=== PATIENT | female | born 1960 | race Caucasian/White ===

== ENCOUNTER 2021-03-19 08:18 | Outpatient (CLI) | payer BC, SELFPAY ==
--- NOTE | ~2021-03-19 | MM_ITS ---
EXAMINATION: MM screening swapnil BI w willian HISTORY: Screening mammogram TECHNIQUE: Craniocaudal and mediolateral oblique 3-D tomosynthesis images were obtained and synthetic 2-D images were generated. CAD analysis was submitted and interpreted. COMPARISON: No prior mammogram is available for comparison at this institution. BREAST PARENCHYMAL COMPOSITION: The breasts are heterogeneously dense, which may obscure small masses . FINDINGS: RIGHT BREAST: There are indeterminate grouped calcifications in the middle third of the upper breast. LEFT BREAST: An asymmetry is present in the anterior third of the slightly outer breast on the cranio caudal view. IMPRESSION: 1. Bilateral breast findings as described above which may represent the patient's baseline however no comparison is currently available. 2. Comparison with prior mammograms is necessary. BI-RADS Category 0: Incomplete: Needs comparison with prior mammograms. Reviewed, dictated and finalized at location A. BLASTING SUPERVISOR IMPRESSION: 1. Bilateral breast findings as described above which may represent the patient 's baseline however no comparison is currently available. 2. Comparison with prior mammograms is necessary. BI-RADS Category 0: Incomplete: Needs comparison with prior mammograms.
--- NOTE | ~2021-03-19 | DEXA_ITS ---
Bone Density Report Name: GISELL TABOR Age: 60 Sex: Female Ethnicity: White Date of : 1960 Indication: postmenopausal; Referring Provider: UNKNOWN, UNKNOWN Study: Bone densitometry was performed. Exam Date: March 19, 2021 Accession number: [id number] Bone Density: Region BMD T-score Z-score Classification AP Spine (L1-L4) 0.934 -1.0 0.4 Normal Femoral Neck (Left) 0.676 -1.6 -0.3 Osteopenia Total Hip (Left) 0.832 -0.9 0.1 Normal Total Hip Bilateral Avg 0.830 -0.9 0.1 Normal Femoral Neck (Right) 0.652 -1.8 -0.5 Osteopenia Total Hip (Right) 0.827 -0.9 0.0 Normal World Health Organization criteria for BMD impression classify patients as: Normal (T-score at or above -1.0), Osteopenia (T-score between -1.0 and -2.5), or Osteoporosis (T-score at or below -2.5). 10-year Fracture Risk(1): Major Osteoporotic Fracture 8.5% Hip Fracture 0.8% Reported Risk Factors: [place] (), Neck BMD=0.652, BMI=29.7 (1) FRAX(R) Version 3.08. Fracture probability calculated for an untreated patient. Fracture probability may be lower if the patient has received treatment. Clinical Information Provided by Patient: Has used the following medications: Vitamin D, Calcium Patient maximum height was 64 Menopause Age: 49 Drinks caffeinated beverages Onset of menses at age 10 Number of children 0 Impression: The patient has low bone mass, based on the Right Femoral Neck T-score. The patient has an estimated ten-year risk of hip fracture of 0.8% and an estimated ten-year risk of major fracture of 8.5%, based on the WHO FRAX algorithm. Discussion: BONE DENSITY IS LOW AT ONE OR MORE SKELETAL SITES. This patient's lowest T-score is low at one or more skeletal sites. It meets the World Health Organization's (WHO) criteria for ?low bone mass? (T-score between -1.0 and -2.5). The patient's 10-year risk of fracture as calculated by FRAX is less than the threshold where pharmacological therapy is recommended by the National Osteoporosis Foundation (NOF). However, all treatment decisions require clinical judgment and consideration of individual patient factors, including patient preferences, comorbidities, previous drug use, risk factors not captured in the FRAX model (e.g., frailty, falls, vitamin D deficiency, increased bone turnover, interval significant decline in bone density) and possible under or overestimation of fracture risk by FRAX. The patient should follow a healthful lifestyle (good nutrition with adequate calcium and vitamin D, and appropriate weight-bearing exercise). Follow-Up: Consider repeating this study in 2 to 3 years to reassess this patient's status, or sooner if there is some new clinical indication. Reported by: [facility] on 03/19/2021 8:46:00 AM. Revi
== END 2021-03-19 08:19 | disposition home or self-care (01) ==
LOC: ANHIMG 08:24
DX: Z12.31 Encounter for screening mammogram for malignant neoplasm of breast (principal); R92.0 Mammographic microcalcification found on diagnostic imaging of breast; Z78.0 Asymptomatic menopausal state; M85.852 Other specified disorders of bone density and structure, left thigh; M85.851 Other specified disorders of bone density and structure, right thigh
CPT/HCPCS: 77063; 77067; 77080

== ENCOUNTER 2022-10-04 00:23 | Day surgery (SDC) | payer BC, SELFPAY ==
[2022-09-22 13:27] VITALS: BMI 29.2
[2022-10-04 07:05] VITALS: BP 137/69; PULSE 83; RESP 18; TEMP 36.4; O2SAT 100; BMI 29.5
[2022-10-04] MEDS: LACTATED RINGERS 1,000 ML 150 ML IV CONT (07:26)
--- NOTE | 2022-10-04 07:51 | P.HP_ITS ---
History of Present Illness History of Present Illness Consent: Risks, benefits, and alternatives have been discussed and questions answered. Patient agrees to proceed with procedure. Chief complaint: neoplasm screening Narrative: Ann Alcantara is a 61 year old female Presents for screening colonoscopy. Patient's current weight appetite and bowel movements are normal. Patient denies abdominal pain. She has had no bleeding. Patient reports 10 years ago she had a colonoscopy that was unremarkable. She does report that her grandparents may have had colon cancer. There is no report of first-degree relatives that have had polyps nor cancer. Review of Systems Review of Systems: Review of systems noncontributory. [facility] Social History Social History Smoking status: Never smoker Substance use type: does not use Living arrangements: with family Spiritual care concerns: No Meds Home Medications and Allergies Home Medications Medication Instructions Recorded Confirmed Type calcium 600 mg capsule 600 mg PO BID 09/22/22 10/04/22 History multivitamin with minerals-folic 1 tablet PO DAILY 09/22/22 10/04/22 History acid 0.4 mg tablet venlafaxine 75 mg capsule,extended 75 mg PO DAILY 09/22/22 10/04/22 History release 24 hr Allergies Allergy/AdvReac Type Severity Reaction Status Date / Time azithromycin Allergy Diarrhea Verified 10/04/22 07:11 Penicillins Allergy Rash Verified 10/04/22 07:11 Vital Signs Vital Signs - 24 hr 10/04/22 07:05 Temperature 97.6 F Pulse Rate 83 Respiratory Rate 18 Blood Pressure 137/69 Pulse Oximetry 100 Oxygen Delivery Room Air Exam Narrative: Physical exam reveals patient to be alert. Vital signs stable. HEENT exam is unremarkable. Patient is anicteric. Lungs are clear to auscultation and percussion. Heart is without murmur or extra sounds. Abdomen bowel sounds are present soft nontender with no organomegaly. Digital external rectal exam is normal. Assessment and Plan Assessment and plan (1) Encounter for screening colonoscopy: Code(s): Z12.11 - Encounter for screening for malignant neoplasm of colon Status: Acute Assessment and Plan: Patient presents today for screening colonoscopy. Further recommendations may be given after endoscopy.
--- NOTE | 2022-10-04 08:10 | P.PNAN_ITS ---
Anes - Initial Pre Proc Eval Procedure: Operation Date: 10/04/22 08:30 Proposed Procedures p Screening Colonoscopy - Dandre Landaverde MD Date/Time: 10/04/22 08:10 Surgeon: Dandre Landaverde MD Pre Op Diagnosis: neoplasm screening Patient Data Age: 61 Gender: F Height: 1.63 m Weight: 78.1 kg Last Vital Signs Temp 97.6 F 10/04/22 07:05 Pulse 83 10/04/22 07:05 Resp 18 10/04/22 07:05 BP 137/69 10/04/22 07:05 Pulse Ox 100 10/04/22 07:05 O2 Del Method Room Air 10/04/22 07:05 Allergies Allergy/AdvReac Type Severity Reaction Status Date / Time azithromycin Allergy Diarrhea Verified 10/04/22 07:11 Penicillins Allergy Rash Verified 10/04/22 07:11 Home Medications Medication Instructions Recorded Confirmed Type calcium 600 mg capsule 600 mg PO BID 09/22/22 10/04/22 History multivitamin with minerals-folic 1 tablet PO DAILY 09/22/22 10/04/22 History acid 0.4 mg tablet venlafaxine 75 mg capsule,extended 75 mg PO DAILY 09/22/22 10/04/22 History release 24 hr Patient hx anesthesia problems: none Family hx anesthesia problems: none Results Review: All pre-operative results and documents have been reviewed as part of the pre- operative evaluation. PMF Social History Social History Smoking status: Never smoker Substance use type: does not use Living arrangements: with family Spiritual care concerns: No Anes - Eval Final PreProcedure Day of Procedure 10/04/22 08:10 Patient weight: normal Heart: regular rate and rhythm Lungs: clear to auscultation Airway: Mallampati scale class II Neurological: alert and oriented Last oral intake: >/= 8 hours ASA classification: II Emergent: no Anesthetic plan: proceed Anesthesia type and monitoring: general GIVS and standard monitoring Results Review: All pre-operative results and documents have been reviewed as part of the pre- operative evaluation. Informed Consent: The patient's anesthetic plan and its attendant risks and benefits were discussed with the patient/family/POA. Questions were solicited and answers provided to the satisfaction of the patient/family/POA.
[2022-10-04 08:58] VITALS: BP 91/47; PULSE 71; RESP 17; O2SAT 100
[2022-10-04 09:08] VITALS: BP 104/64; PULSE 73; RESP 19; O2SAT 100
[2022-10-04 09:18] VITALS: BP 115/66; PULSE 75; RESP 21; O2SAT 100
== END 2022-10-04 09:28 | disposition home or self-care (01) ==
PROVIDERS: PCP Registered Nurse; Visit Provider Internal Medicine Gastroenterology
PROC: 0DJD8ZZ Inspection of Lower Intestinal Tract, Via Natural or Artificial Opening Endoscopic (ICD-10-PCS; CPT 45378; principal; 2022-10-04 08:30)
DX: Z12.11 Encounter for screening for malignant neoplasm of colon (principal); K64.8 Other hemorrhoids
CPT/HCPCS: 45378; J2001; J2704; J7120

== ENCOUNTER 2023-04-12 14:24 | Outpatient (CLI) | payer BC, SELFPAY ==
--- NOTE | ~2023-04-12 | MM_ITS ---
EXAMINATION: MM screening swapnil BI w willian HISTORY: Screening TECHNIQUE: Craniocaudal and mediolateral oblique 3-D tomosynthesis images were obtained and synthetic 2-D images were generated. CAD analysis was submitted and interpreted. COMPARISON: Comparison to multiple prior studies sequentially, with oldest reviewed study dated 01/11. BREAST PARENCHYMAL COMPOSITION: The breasts are heterogeneously dense, which may obscure small masses . FINDINGS: There is no evidence of suspicious mass, calcification, or architectural distortion to sugg est malignancy in either breast. There has been no suspicious interval change. IMPRESSION: 1. No mammographic evidence of malignancy. 2. Recommend routine screening mammography in one year. BI-RADS Category 1: Negative Reviewed, dictated and finalized at location A. UTER FORENSIC EXAMINER
== END 2023-04-12 14:25 | disposition home or self-care (01) ==
LOC: ANHIMG 14:28
PROVIDERS: PCP Registered Nurse; Visit Provider Registered Nurse
DX: Z12.31 Encounter for screening mammogram for malignant neoplasm of breast (principal)
CPT/HCPCS: 77063; 77067

== ENCOUNTER 2024-05-23 14:48 | Outpatient (CLI) | payer OTHER, SELFPAY ==
--- NOTE | ~2024-05-23 | MM_ITS ---
EXAMINATION: MM screening [facility] BI w willian HISTORY: Screening mammogram TECHNIQUE: Craniocaudal and mediolateral oblique 3-D tomosynthesis images were obtained and synthetic 2-D images were generated. CAD analysis was submitted and interpreted. COMPARISON: 04/12/2023, 03/19/2021, 02/19/2020 BREAST PARENCHYMAL COMPOSITION:Not Dense. There are scattered areas of fibroglandular density. FINDINGS: No suspicious mass, calcification, or architectural distortion are identified in either lili ast to suggest malignancy. There has been no suspicious interval change. IMPRESSION: No mammographic evidence of malignancy. Recommend routine screening mammography in one year. BI-RADS Category 1: Negative Reviewed, dictated and finalized at location .
--- OUTSIDE RECORDS SUMMARY | 2024-05-23 16:38 | XMS_ITS | Clinical Summary ---
Author Organization [facility] Address [address] [place] [address] Care Team Providers Care Urologist Md Name Role Phone Jaden Nguyen Kal INFANTE Primary Care Provider + Allergies Active Allergy Reactions Criticality Noted Date Comments Penicillins Rash Low 07/01/2019 Azithromycin Diarrhea Low 07/01/2019 Medications Calcium Carbonate-Vit D-Min (CALTRATE 600+D PLUS MINERALS) 600-800 MG-UNIT Chew Tab Chew 2 tablets by mouth 2 (two) times a day. 2 Active ketoconazole (NIZORAL) 2 % creamIndication s:Tinea cruris Apply topically daily. 60 g 3 Active omeprazole EC (PRILOSEC OTC) 20 MG tablet Take 1 tablet (20 mg total) by mouth daily. Active albuterol sulfate HFA 108 (90 Base) MCG/ACT inhaler INHALE 2 PUFFS BY MOUTH 4 TIMES DAILY NEEDED FOR WHEEZING FOR SHORTNESS OF BREATH Active venlafaxine XR (EFFEXOR XR) 37.5 MG 24 hr capsuleIndicati ons:Vasomotor symptoms due to menopause Take 1 capsule daily for one month, then take 1 capsule every other day for one month, then stop 30 capsule 1 5 Active venlafaxine XR (EFFEXOR-XR) 75 MG 24 hr capsuleIndicati ons:Vasomotor symptoms due to menopause TAKE 1 CAPSULE BY MOUTH ONCE DAILY ALONG WITH ONE 37.5MG CAPSULE. 90 capsule 2 4 05/23/19 25 Discontinu ed(Dose adjustment ) Active Problems Problem Noted Date Diagnosed Date Vasomotor symptoms due to menopause 05/22/2024 Osteopenia of other site 04/05/2021 Resolved Problems Problem Noted Date Diagnosed Date Resolved Date Superficial basal cell carcinoma 09/03/2023 05/22/2024 Encounters Date Type Department Care Team Description 05/22/2024 2:20 PM CDT Office Visit [facility] Internal [address] [phone] Jaden Nguyen DO Annual 05/22/2024 Travel 04/24/2024 Telephone [facility] [address] [address] Jaden Nguyen DO Lab Results (PAP) 04/11/2024 1:20 PM BASEBALL HAND SEWER Office Visit [facility] [address] [address] Melida Edwards APNP Exterminator Helper Exam 04/11/2024 10:12 AM BASEBALL HAND SEWER - 04/11/2024 11:59 PM BASEBALL HAND SEWER Hospital Encounter [facility] [address] [place] [address] Melida Edwards APNP Discharge Disposition: Home or Self Care (Routine Discharge) 04/11/2024 Travel from Last 3 Months Immunizations Name Administration Dates Next Due MODERNA COVID-19 (12+) MRNA, LNP-S, PF, 100 MCG/ 0.5 ML DOSE 06/26/2020,05/29/2020 Shingrix 05/22/2024 Td 07/10/2003 Tdap (Adacel) 04/05/2021 Family History Medical History Relation Comments Dementia Father Heart Disease Father Cancer Maternal Grandmother Colon Arthritis Mother Osteoporosis Mother No Known Problems Sister Relation Status Comments Father Alive Maternal Grandmother Mother Alive Sister Alive Social History Tobacco Use Types Packs/Day Years Used Date Smoking Tobacco: Never Smokeless Tobacco: Never Tobacco Cessation:Counseling Given: Not Answered Alcohol Use Standard Drinks/Week Comments Never 0 (1 standard drink = 0.6 oz pur e alcohol) PHQ-2 Answer Date Recorded Patient Health Questionnaire-2 Score 6 04/11/2024 Comments No Sex and Gender Information Value Date Recorded Sex Assigned at Female 04/11/2024 1:41 PM BASEBALL HAND SEWER Legal Sex Female 5:45 PM BASEBALL HAND SEWER Gender Identity Female 04/02/2021 10:24 AM BASEBALL HAND SEWER Sexual Orientation Straight 04/02/2021 10 :24 AM BASEBALL HAND SEWER Occupation Industry Job Start Date Job End Date Not on file Not on file Not on file Not on file Last Filed Vital Signs Vital Sign Reading Time Taken Comments Blood Pressure 122/66 05/22/2024 2:15 PM CDT Pulse 89 05/22/2024 2:15 PM CDT Temperature 37.4 C (99.3 F) 05/22/2024 2:15 PM CDT Respiratory Rate 16 05/22/2024 2:15 PM CDT Oxygen Saturation 97% 05/22/2024 2:15 PM CDT Inhaled Oxygen Concentration - - Weight 83.2 kg (183 lb 6.4 oz) 05/22/2024 2:15 P M CDT Height 162.6 cm (5' 4 ) 05/22/2024 2:15 PM CDT Body Mass Index 31.48 05/22/2024 2:15 PM CDT Plan of Treatment Upcoming Encounters Date Type Department Care Team (Late st Contact Info) Description 09/24/2024 2:20 PM CDT Allied Health/Nurse Visit [facility] [address] [place] [address] Jaden Nguyen DO [address] [place] [address] 04/17/2025 2:00 PM BASEBALL HAND SEWER Office Visit [facility] [address] [place] [address] Melida Edwards APNP [address] [place] [address] 05/26/2025 3:00 PM CDT Office Visit [facility] [address] [place] [address] Jaden Nguyen, DO [address] [place] [address] Health Maintenance Due Date Last Done Comments Mammogram Screening 04/12/2024 04/12/2023, 03/19/2021, 02/19/2020, Additional history exists Zoster Vaccines (2 of 2) 07/17/2024 05/22/2024 Annual Physical 05/22/2025 05/22/2024, 03/15, 05/22/2023, Additional history exists COVID-19 Vaccine ( season) 2025 04/23/2021, 06/26/2020, 05/29/2020 Postponed from 11/12/2023 (Patient Refused) Influenza Adult (#1) 2025 Postpon ed from 12/12/2023 (Patient Refused) Cervical Cancer Screening Pap Smear (Age 30 to 64) Every 3 Years 04/11/2027 04/11/2024, 03/18/2022 Cervical Cancer Screening Pap with HPV Testing (Age 30 to 64) Every 5 Years 04/11/2029 04/11/2024, 03/18/2022 Cervical Cancer Screening with HPV 04/11/2029 DTaP, Tdap and Td Vaccines (2 - Td or Tdap) 04/05/2031 04/05/2021, 07/10/2003 Colorectal Cancer Screening Colonoscopy (10 Years) 10/04/2032 10/04/2022 RSV Immunization or 60+ Years (1 - 1-dose 75+ series) 12/23/2035 Hepatitis C Completed 04/05/2021 PHQ-2 (Physician [place]) Completed 04/11/2024 Meningococcal B Vaccine Aged Out No l onger eligible based on patient's age to complete this topic Meningococcal Vaccine Aged Out No yarelis david eligible based on patient's age to complete this topic Pneumococcal Vaccine: Pediatrics (0 to 5 Years) and At-Risk Patients (6 to 64 Years) Aged Out No longer eligible based on patient's age to complete this topic RSV Immunizations Under 20 Months Aged Out No longer eligible based on patient's age to complete this topic Procedures Procedure Name Priority Date/Time Associated Diagnosis Comments HUMAN PAPILLOMAVIRUS, HIGH-RISK TYPES Routine 04/11/2024 12:00 PM BASEBALL HAND SEWER CYTOPATH CERV/VAG THIN LAYER Routine 04/11/2024 12:00 AM BASEBALL HAND SEWER MAMMOGRAM GENERIC (SCAN ORDER) 04/12/2023 COLONOSCOPY GENERIC (SCAN ORDER) 10/04/2022 HEPATITIS C ANTIBODY Routine 04/05/2021 10:00 AM BASEBALL HAND SEWER Encounter for preventative adult health care examination Need for hepatitis C screening test from Last 3 Months or Most Recently Relevant to Health Maintenance Results * HUMAN PAPILLOMAVIRUS, HIGH-RISK TYPES (04/11/2024 12:00 PM BASEBALL HAND SEWER) SPEC DESCRIPTION CERVIX 04/15/19 11:33 AM BASEBALL HAND SEWER [facility] HPV DNA HIGH RISK NEGATIVE NEGATIVE 04/15/2024 4:08 PM BASEBALL HAND SEWER [facility] Comment:SEE CYTOLOGY REPORT 04/11/2024 12:0 0 PM BASEBALL HAND SEWER us Melida TAFOYA PATHOLOGY/CYTOLOGY ORDERABL ES Final Result [facility] [address] [place] [address], * Cytopath Cerv/Vag Thin Layer (04/11/2024 12:00 AM BASEBALL HAND SEWER) THIN PREP PAP [facility] [address] [place] [address] Department of Pathology Pathology Report CERVICAL/VAGINAL PAP SMEAR REPORT Name: ANN TABOR Age: 10 1960 (Age: 63) Location: [facility] Sex: F Collected Date: 04/11/2024 [facility] #: [id number] Date Received: 04/15/2024 Date Reported: 04/23/2024 Provider: MELIDA TAFOYA INTERPRETATION CERVICAL/ENDOCERVI JENNIFER: SATISFACTORY FOR EVALUATION-PARTIAL LY OBSCURING FOREIGN MATERIAL CONSISTENT WITH LUBRICANT. NEGATIVE FOR INTRAEPITHELIAL LESION OR MALIGNANCY. ATROPHY. NEGATIVE FOR HIGH RISK HPV. The FDA approved Aptima HPV assay is an in vitro nucleic acid amplification test for the qualitative detection of E6/E7 viral messenger RNA (mRNA) from 14 high-risk types of human papillomavirus (HPV) in cervical specimens. The high-risk HPV types detected by the assay include: 16,18,31,33,35,39, 45,51,52,56,58,59, 66, and 68. Electronically Signed Out [facility] ZURI Valle (ASCP) CLINICAL HISTORY Z01.419 ENCOUNTER FOR WELL WOMAN EXAM WITH ROUTINE GYNECOLOGICAL EXAM Z12.4 CERVICAL CANCER SCREENING SCREENING PAP ThinPrep Pap Test with HR HPV testing requested. Date of Last Menstrual Period: UNKNOWN Menstrual Status: Post-Menopausal SPECIMEN SUBMITTED CERVICAL/ENDOCERVI JENNIFER Specimen Received:1 Thin Prep Vial, Image Assisted Pap (SMD) Please note: The Pap smear is not a diagnostic test. It is a screening test. Negative results on combined screening (Pap test and HPV-DNA) have a high negative predictive value (99.1-100 percent) for cervical cancer. The pap test is not effective in detecting cervical adenocarcinoma. [facility] 04/11/2024 04/15/2024 8:4 5 AM BASEBALL HAND SEWER Comment:CERVICAL/ENDOCERVICA L Melida TAFOYA PATHOLOGY/CYTOLOGY ORDERABL ES Final Result [facility] [address] [place] [address], * MAMMOGRAM GENERIC (SCAN ORDER) (04/12/2023) Anatomical Region Laterality Modality Other 04/12/2023 [facility] Scanned SCANNING Final Resu lt * COLONOSCOPY GENERIC (10/04/2022) 10/04/2022 [facility] Scanned SCANNING Final Resu lt * HEPATITIS C ANTIBODY (04/05/2021 10:00 AM BASEBALL HAND SEWER) HEPATITIS C AB NON-REACTI VE NON-REACT KARI 04/05/2021 8:04 PM BASEBALL HAND SEWER [facility] Comment: ANTIBODIES TO HCV NOT DETECTED. DOES NOT EXCLUDE THE POSSIBILITY OF EXPOSURE TO HCV. 04/05/2021 10:0 0 AM BASEBALL HAND SEWER Jaden Nguyen DO LABORATORY Final Re sult [facility] [address] [place] [address], [id number] from Last 3 Months or Most Recently Relevant to Health Maintenance Insurance [employer] Care Teams Urologist Md Relationship Specialty Start Date End Date Jaden Nguyen DO [address] [place] [id number] PCP - General FAMILY PRACTICE 04/06/21
--- OUTSIDE RECORDS SUMMARY | 2024-05-23 16:38 | XMS_ITS | Encounter Summary ---
Author Organization [facility] Address [address] [place] [address] Care Team Providers Care On Site Nurse Name Role Phone Jaden Nguyen DO Primary Care Provider + Encounter Details Date Type Department Care Team (Latest Contact Info) Description 05/22/2024 Travel Social History Tobacco Use Types Packs/Day Years Used Date Smoking Tobacco: Never Smokeless Tobacco: Never Alcohol Use Standard Drinks/Week Comments Never 0 (1 standard drink = 0.6 oz pur e alcohol) PHQ-2 Answer Date Recorded Patient Health Questionnaire-2 Score 6 04/11/2024 Comments No Sex and Gender Information Value Date Recorded Sex Assigned at Female 04/11/2024 1:41 PM ACCESS CLINICIAN Legal Sex Female 5:45 PM ACCESS CLINICIAN Gender Identity Female 04/02/2021 10:24 AM ACCESS CLINICIAN Sexual Orientation Straight 04/02/2021 10 :24 AM ACCESS CLINICIAN Occupation Industry Job Start Date Job End Date Not on file Not on file Not on file Not on file documented as of this encounter Plan of Treatment Upcoming Encounters Date Type Department Care Team (Late st Contact Info) Description 09/24/2024 2:20 PM CDT Allied Health/Nurse Visit [facility] Family & Internal Medicine [address] [phone] Jaden Nguyen DO [address] [place] [address] 04/17/2025 2:00 PM ACCESS CLINICIAN Office Visit [facility] Family & Internal Medicine [address] [phone] Twila Edwards APNP [address] [place] [address] 05/26/2025 3:00 PM CDT Office Visit [facility] [place] [address] [place] [address] Jaden Nguyen DO [address] [place] [address] documented as of this encounter Visit Diagnoses Not on filedocumented in this encounter Additional Health Concerns Assessment Noted Time PHQ-9 Depression Total Score: 14 025 1:39 PM ACCESS CLINICIAN documented as of this encounter Care Teams On Site Nurse Relationship Specialty Start Date End Date Jaden Nguyen DO [address] [place] [id number] PCP - General FAMILY PRACTICE 04/06/21 documented as of this encounter
--- OUTSIDE RECORDS SUMMARY | 2024-05-23 16:38 | XMS_ITS | Data Portability ---
Author Organization [facility], [address] [place] [address] ([place]) Address [address] [address] Care Team Providers Care Shipping Receiving Manager Name Role Phone NICK VEGA Primary Care Provider NICK VEGA Referring Provider [phone] Assessment Encounter Date Assessment Date Assessment LastModified by Organization Details LastModified Time 08/31/2023 08/31/2023 Patient is accompanied by her . PREOPERATIVE EVALUATION Aspirin: No Coumadin: No Other Blood Thinner: No Prosthetic heart valve: No Allergy to local anesthetic: No Pacemaker or Defibrillator: No Prosthetic joint: No Diagnosis: BCC, superficial Lesion Location: Right upper arm. Site was visually and verbally verified by the patient. Lesion Size: 2.3 cm. Margins: 4 mm. BP: 116/80 Pulse: 94 Wt: 183.6 SpO2: 99 Procedure: Complications of excision including bleeding, infection, discomfort, bruising, recurrence and scarring were discussed. The operative field was cleaned with Hibiclens and draped to maintain a sterile operative field. Local anesthesia was obtained with a field block of less than 24 cc of xylocaine with epinephrine 1:100,000. The skin was excised with a #15 blade through the epidermis and dermis into the subcutaneous tissue. The lesion was excised with a resultant defect of 6 cm. The wound edges were undermined. Bleeding vessels were electrocoagulated. In order to reduce tension on the skin edges and prevent dehiscence the wound was then closed in a layered fashion with 3-0 Vicryl subcuticular sutures and 4-0 Prolene simpler running sutures. The specimen was sent to the lab for pathological examination. Estimated Blood Loss: Minimal. Area cleansed with Hibiclens. Vaseline applied to surgical site. Pressure dressing applied to surgical site. The patient was advised to use ES Tylenol in the first 48 hours following the procedure for discomfort. Patient was advised to avoid aspirin and NSAIDS during this time due to bleeding risks. The patient was advised that she may restart her Aspirin therapy 48 hours after the procedure. Complications: None. Condition of the patient: The patient was discharged home with written postoperative instructions and will return for suture removal in 7-10 days. [email or web address] Not available 09/04/2023 09:50:44 09/11/2023 09/11/2023 Patient is accompanied by her . PREOPERATIVE EVALUATION Aspirin: No Coumadin: No Other Blood Thinner: No Prosthetic heart valve: No Allergy to local anesthetic: No Pacemaker or Defibrillator: No Prosthetic joint: No Diagnosis: BCC, superficial Lesion Location: Right upper arm. Site was visually and verbally verified by the patient. Lesion Size: 2.3 cm. Margins: 4 mm. BP: 116/80 Pulse: 94 Wt: 183.6 SpO2: 99 Procedure: Complications of excision including bleeding, infection, discomfort, bruising, recurrence and scarring were discussed. The operative field was cleaned with Hibiclens and draped to maintain a sterile operative field. Local anesthesia was obtained with a field block of less than 24 cc of xylocaine with epinephrine 1:100,000. The skin was excised with a #15 blade through the epidermis and dermis into the subcutaneous tissue. The lesion was excised with a resultant defect of 6 cm. The wound edges were undermined. Bleeding vessels were electrocoagulated. In order to reduce tension on the skin edges and prevent dehiscence the wound was then closed in a layered fashion with 3-0 Vicryl subcuticular sutures and 4-0 Prolene simpler running sutures. The specimen was sent to the lab for pathological examination. Estimated Blood Loss: Minimal. Area cleansed with Hibiclens. Vaseline applied to surgical site. Pressure dressing applied to surgical site. The patient was advised to use ES Tylenol in the first 48 hours following the procedure for discomfort. Patient was advised to avoid aspirin and NSAIDS during this time due to bleeding risks. The patient was advised that she may restart her Aspirin therapy 48 hours after the procedure. Complications: None. Condition of the patient: The patient was discharged home with written postoperative instructions and will return for suture removal in 7-10 days. [email or web address] Not available 09/11/2023 12:10:58 01/18/2024 01/18/2024 1. The following diagnosis is categorized as a SELF LIMITED OR MINOR PROBLEM: Seborrheic keratoses : We discussed the fact that these are benign lesions requiring no treatment. We discussed the fact that removal would be considered a cosmetic procedure and would not be covered by insurance. The patient was advised that more such lesions may develop. The patient is not bothered by the lesions and does not wish to have them treated. We will observe.Advised to use a sunscreen of at least SPF 30 and wear protective clothing. OTC tx for SK: wart removers, dermabrasion, 35% hydrogen peroxide daily with paint or makeup brush 2. The following diagnosis is categorized as a SELF LIMITED OR MINOR PROBLEM: We discussed the fact that lentigines are actinically induced and that they are benign. We discussed the fact that they should be watched carefully for change. We discussed the importance of photoprotection using protective clothing and sunscreen with SPF thirty or higher on a regular basis. 3. The following diagnosis is categorized as a CHRONIC ILLNESS (STABLE/At Pt Goal): Benign nevi. We discussed the importance of watching for new and/or changing lesions. We discussed the worrisome changes to watch for that could indicate a melanoma. We discussed the importance of photoprotection using protective clothing and sunscreen with OTC SPF thirty or higher. Avoid peak hours of sun exposure (10am-3pm). We discussed the importance of regular self skin examinations. 4. The following diagnosis is categorized as a CHRONIC ILLNESS : History of non-melanoma skin cancer. We discussed the importance of regular skin examinations by a physician as well as monthly self-skin examinations. No evidence of recurrence in previously treated areas. We discussed the worrisome changes to watch for in skin lesions. We discussed the importance of watching for new and/or changing lesions. We discussed the importance of photoprotection using protective clothing and sunscreen with SPF 30 or higher. Pt was instructed to call the office if develops a lesion which grows or changed rapidly. 5. The following diagnosis is categorized as a CHRONIC ILLNESS: Actinic keratosis(es): I suggested we treat the lesions with liquid nitrogen today. The risks and benefits of the procedure, the risks and benefits of alternative procedures, as well as the possible consequences of not undergoing the procedure were discussed. The patient verbalized understanding and gives consent to proceed. Liquid nitrogen was applied to all affected areas. Side effects of pain, redness, blistering, scabbing, hypopigmentation and recurrence were discussed with the patient. The patient was advised that these are pre-skin cancers: they have a small risk of developing into skin cancers and their presence signifies an increased risk for developing skin cancer. Thus pt was advised to use a sunscreen of at least SPF 30 and wear protective clothing. (2) Lesion(s) treated on the (1) left arm, (1) left nose. Pt to call if lesions do not heal/resolve as expected. Pt voiced understanding 6. The following is acute uncomplicated illness: Keloid/Hypertrophi c Scar on the right upper arm: Discussed dx and tx. Warned of risks of pain, scarring, infection, dyspigmentation, atrophy, need for additional treatments, recurrence of condition, bleeding. Pt voiced understanding and wished to proceed. Pt tolerated well. We injected 20 mg/ml for a total of 0.2 ml I asked pt to return in 6 months for a TBSE/Hx NMSC. Pt will call with any questions or concerns in the meantime. [email or web address] Not available 01/18/2024 15:55:16 Plan of Treatment Reminders Order Date Submit Date Provider Last Modified By Organization Details Last Modified Time Details Appointments Establish ed Patient 15.EST 2024 03:30P Sharee Lozada [place] Not available Not available Not available Lab surgical pathology study 2023 024 [id number] N[facility] Only - [facility], [address] [place] [address], [id number], 10/06/2023 11:15:26 surgical pathology study 2023 024 [id number] [facility], [address] [place] [address], [id number], 09/04/2023 17:48:57 Referral None recorded. Procedures None recorded. Surgeries None recorded. Imaging None recorded. Medication Orders None recorded. Patient TargetsNo targets recorded. Patient InstructionsNo instructions recorded. Reason for Referral None Reported. Results Created Date Observation Date Name Description Value Unit Range Abnormal Flag Note LastModifiedBy Organization Detail LastModifiedTime 08/31/19 24 09/04/2023 surgi beata patho logy study tissue exam biopsy [facility] [address] [facility] [address],[place] [address] Ph. Osmany Navarro MD, PhD, Medic al Direc tor REGGIE STARKS, GIL Maldonado MD Patie nt: GISELL TABOR Sahil Corado e ID: [id number] Repor t Statu s: Final :1 1960 Case #: [id number] Age: 62 Y Gende r: F Date Colle cted: 08/30 MRN # : [id number] Date Recei ramon: 08/30 Repor lambert Date: 09/03 FINAL DIAGN OSIS: Skin, right upper arm, excis ion: - Basal cell carci noma, super ficia l type - Frances ns negat basilio for tumor ICD-1 0: C44.6 12 Elect ayden allfranco Verif ied by Angela Crocker MD Elect ayden Signa ture 09/03 16:45 SPECI MEN SOURC E: Skin, right upper arm, excis ion GROSS DESCR IPTIO N: The speci men conta iner( s) and requi sitio n have the same patie nt name. Recei ramon in 10% neutr al buffe red forma angela for forma angela-f ixed paraf fin-e mbedd ed secti ons label ed righ t upper arm is an unori ented 5.5 x 2.4 cm fragm ent of deluna- connell skin excis ed to the depth of 0.6 cm. A 0.9 x 0.9 cm white scar- like lesio n is prese nt on the skin surfa ce and is 0.4 cm [address] the close st frances n. The speci men is inked , seria lly secti oned, and entir virgie submi tted for histo logic study as follo ws: A1 and A2 tips, A3 throu gh A8 remai nder. CLINI BEATA INFOR MATIO N: Skin biops y, right upper arm, BCC, super ficia l. Not Available [facility] - [facility] [address], [address], 09/04/2023 17:48:57 Result Notes None recorded. Problems Name Problem SNOMED Code Status Onset Date Resolution Date Notes Provider Name and Address Organization Details Recorded Time Melanocytic nevus of right upper limb 374689967 Active 2023 Lisa Russell [facility] 4 15:21:18 Melanocytic nevus of left lower limb 4517099361743 06 Active 2023 Lisa Russell [facility] 4 15:21:26 Actinic keratosis 945778764 Active 2023 Lisa Russell [facility] 4 15:31:53 Keloid scar 76894870 Active 2023 Lisa Russell [facility] 4 15:38:33 Neoplasm of uncertain behavior of skin 68190978 Active 2023 Dominga Purvis [facility] 4 16:13:53 Superficial basal cell carcinoma 762319423 Active 2023 Kierra Kaur MD [address] [place] [address], [phone], [facility] 4 18:33:10 Basal cell carcinoma of skin 998401339 Active 2023 Kierra Kaur MD [address] [place] [address], [phone], [facility] 4 18:34:44 Problem Notes None recorded. Medical Equipment None Reported. Allergies Allergen ID Allergen Name Allergen Category Reaction Reaction Severity Criticality Documentation Date Start Date Code Code System Note Provider Name and Address Organization Details Recorded Time 146001 Product containin g penicilli n (product) medicatio n rash Not available Not available 04/10/20232011 17356 8001 SNOMED React ion: Rash; Not Available Not Available Not Available Medications Name Sig Start Date Stop Date Status Note LastModified by Organization Details LastModified Time venlafaxine ER 37.5 mg capsule,exten ded release 24 hr TAKE 1 CAPSULE BY MOUTH ONCE DAILY ALONG WITH A 75 MG CAPSULE FOR A TOTAL DOSE OF 112.5MG active Not Available Not Available N ot Available venlafaxine ER 75 mg capsule,exten ded release 24 hr TAKE 1 CAPSULE BY MOUTH ONCE DAILY ALONG WITH ONE 37.5MG CAPSULE active Not Available Not Available No t Available benzonatate 200 mg capsule TAKE 1 CAPSULE BY MOUTH THREE TIMES DAILY NEEDED FOR COUGH active Not Available Not Available No t Available prednisone 20 mg tablet TAKE 1 TABLET BY MOUTH ONCE DAILY active Not Available Not Available No t Available sulfamethoxaz ole 800 mg-trimethopr im 160 mg tablet TAKE 1 TABLET BY MOUTH TWICE DAILY FOR 10 DAYS active Not Available Not Available No t Available methylprednis olone 4 mg tablets in a dose pack TAKE BY MOUTH DIRECTED ON INSIDE OF PACKAGE active Not Available Not Available N ot Available albuterol sulfate HFA 90 mcg/actuation aerosol inhaler INHALE 2 PUFFS BY MOUTH 4 TIMES DAILY NEEDED FOR WHEEZING FOR SHORTNESS OF BREATH active Not Available Not Available No t Available Vitals Date Recorded Body weight Heart rate Oxygen saturation Oxygen saturation in Arterial blood by Pulse oximetry Systolic blood pressure Diastolic blood pressure Provider Name and Address Organization Details Last Updated DateTime 4 33218.5 6 g 94 /min 99 % 99 % 116 mm[Hg] 80 mm[Hg] [facility] 4 16:10:54 Social History Question Answer Notes LastModified by Organizat ion Details LastModified Time Do You Have An Advance Directive? Yes [email or web address] Information not available 08/24/2023 What Is Your Level Of Alcohol Consumption? None [email or web address] Information not available 08/24/2023 What Is Your Level Of Caffeine Consumption? Heavy [email or web address] Information not available 08/24/2023 What Is Your Code Status? DNR [email or web address] Information not available 08/24/2023 Are You Currently Employed? 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 1-2 Times Per Week [email or web address] Information not available 08/24/2023 Do You Have A Medical Power Of Wood Tool Maker? No [email or web address] Information not available 08/24/2023 What Was The Date Of Your Most Recent Tobacco Screening? 08/31/2023 [email or web address] Information not available 08/24/2023 What Is Your Relationship Status? [email or web address] Information not available 08/24/2023 Do You Use Any Illicit Or Recreational Drugs? No [email or web address] Information not available 08/24/2023 Sex: Unknown Functional Status Question Answer Note LastModified by Organizat ion Details LastModified Time What is your exercise level? Occasional [email or web address] Information not available 08/24/2023 Mental Status None recorded. Family History Relationship Description Onset Age of this Age Resolved Age Notes LastModified by Organization Details LastModified Time Mother Arthritis [email or web address] Not available 08/24/2023 17:59:08 Mother Osteoporosis [email or web address] Not availa ble 08/24/2023 17:59:08 Father Hypercholest erolemia [email or web address] Not available 2023 17:59:08 Sister Osteoporosis [email or web address] Not availa ble 08/24/2023 17:59:08 Notes:Mother has arthritis M other has osteoporosis Mother has spinal stenosis Medical History Condition Response Diabetes N Anxiety Disorder N Bleeding Disorder N Attention-deficit Hyperactivity Disorder N High Blood Pressure N Arthritis N Hyperlipidemia N Cancer N Stroke N Thyroid Problems N Asthma N Depression N COPD N Anemia N Seizures N Heart Disease N Fibromyalgia N Osteoporosis N Kidney Disease N Gynecological HistoryNo gynecological history recorded. Obstetrics History GPAL:G 0 P 0 0 0 0 Past Encounters Encounter ID Performer Location Encounter Start Date Encounter Closed Date Diagnosis/Indication Diagnosis SNOMED-CT Code Diagnosis ICD10 Code Diagnosis Note [id number] Kierra Kaur MD [facility] ([place]) [address] [place] [address] 08/31/2023 15:37:18 08/31/2023 17:25:08 Neoplasm of uncertain behavior of skin 13726314 D48.5 Superficia l basal cell carcinoma 637307625 C44.91 Basal cell carcinoma of skin 557789476 C44.91 [id number] Kierra Kaur MD [facility] ([place] [address] [place] [phone] 09/11/2023 09:23:13 09/11/2023 12:13:24 Neoplasm of uncertain behavior of skin 82015717 D48.5 Superficia l basal cell carcinoma 552716899 C44.91 Basal cell carcinoma of skin 684907053 C44.91 [id number] Kierra Kaur MD [facility] ([place]) [address] [facility] [place] [address] 01/18/2024 15:10:27 01/18/2024 15:41:49 Melanocytic nevus of right upper limb 816609892 D22.61 Melanocyti c nevus of left lower limb 1779715125 10746 D22.72 Actinic keratosis 873702 007 L57.0 Keloid scar 96332103 L91 .0 Health Concerns Section Related Observation LastModified by Organization Detai ls LastModified Time None Recorded Concern Status LastModified by Organization Details LastModified Time None Recorded Advance Directives Directive Y: Payers Encounter Date Sequence Insurance Name Policy Number Policy [place] Covered Member ID [place] Member ID Guarantor Name 08/31/2023 1 [place] [id number] Gisell Tabor [id number] Gisell Tabor 09/11/2023 1 [place] [id number] Gisell Tabor [id number] Gisell Tabor 01/18/2024 1 [employer] (O) [id number] Gisell Tabor [id number] Gisell Tabor Notes Date Note Type Note Provider Name and Address Organization Details Recorded Time 01/18/2024 text/html 6m TBSE. Concerns with areas on left arm and nose Kierra Kaur MD [address] [place] [address], [phone], [facility] 01/18/2024 15:56:08 OBGyn Episode No OBEpisode recorded.
--- OUTSIDE RECORDS SUMMARY | 2024-05-23 16:38 | XMS_ITS | Encounter Summary ---
Author Organization [facility] Address [address] [place] [id number] Care Team Providers Care Director Of Securities And Real Estate Name Role Phone Jaden Nguyen DO Primary Care Provider + Reason for Visit * Reason Comments Annual Encounter Details Date Type Department Care Team (Late st Contact Info) Description 05/22/2024 2:20 PM CDT Office Visit [facility] Family & Internal Medicine [id number] [place] [phone] Jaden Nguyen DO [address] [place] [address] [id number] Annual Social History Tobacco Use Types Packs/Day Years Used Date Smoking Tobacco: Never Smokeless Tobacco: Never Tobacco Cessation:Counseling Given: Not Answered Alcohol Use Standard Drinks/Week Comments Never 0 (1 standard drink = 0.6 oz pur e alcohol) PHQ-2 Answer Date Recorded Patient Health Questionnaire-2 Score 6 04/11/2024 Comments No Sex and Gender Information Value Date Recorded Sex Assigned at Female 04/11/2024 1:41 PM DISTRIBUTOR SALES MANAGER Legal Sex Female 5:45 PM DISTRIBUTOR SALES MANAGER Gender Identity Female 04/02/2021 10:24 AM DISTRIBUTOR SALES MANAGER Sexual Orientation Straight 04/02/2021 10 :24 AM DISTRIBUTOR SALES MANAGER Occupation Industry Job Start Date Job End Date Not on file Not on file Not on file Not on file documented as of this encounter Last Filed Vital Signs Vital Sign Reading [...] Mass Index 31.48 05/22/2024 2:15 PM CDT documented in this encounter Progress Notes * Jadencarol Nguyen, DO - 05/22/2024 2:20 PM CDT Images from the original note were not included. GENERAL OFFICE VISIT Encounter Date: 05/22/2024 Chief Complaint: 63-year-old female presents for Annual HPI: The patient is being seen for a health maintenance evaluation. General Health: good Dental Health: Sees dentist regularly Vision Health: Wears glasses and Last eye exam < 1 year ago Hearing Health: No hearing problems Immunizations Needed: Influenza, COVID, and Shingrix, will do Shingrix Weight: Obese Body mass index is 31.48 kg/m??. Physical Activity: Excersises regularly Cervical Cancer Screening: Following with our STAFF DEVELOPMENT COORDINATOR RN's Breast Cancer Screening: Due , will obtain tomorrow Colorectal Cancer Screening: Colonoscopy last done: 10/04/22 and Colonoscopy every 10 years Metabolic Screening: Patient has not been screened previously within the past year. HCV Screening: Pt had negative screening PHQ-2 Screening Score: 0 Smoking Status: History Smoking Status Never Smokeless Tobacco Never Patient does not meet criteria for Low Dose CT screening Sleep Apnea Risk Factors: Snoring and >50yo Pt would like to wean off of the Effexor at this time. She has been on it for 2 years. Review of Systems Constitutional: Negative for fever. Respiratory: Negative for shortness of breath. Cardiovascular: Negative for chest pain. Skin: Negative for rash. Endo/Heme/Allergies: See HPI Psychiatric/Behavioral: Negative for depression. Patient Active Problem List Diagnosis Osteopenia of other site Vasomotor symptoms due to menopause Past Medical History: Diagnosis Date Anemia Ongoing Chronic low back pain GERD (gastroesophageal reflux disease) Hot flashes Osteopenia Patient denies medical problems Superficial basal cell carcinoma 09/03/2023 Past Surgical History: Procedure Laterality Date CARPAL TUNNEL RELEASE Bilateral EXCISION BASAL CELL CARCINOMA Right 2024 Right arm HC TRIGGER FINGER RELEASE Left thumb Family History Problem Relation Name Age of Onset Osteoporosis Mother Marcelle Arthritis Mother Marcelle Heart Disease Father Augustus Dementia Father Augustus No Known Problems Sister Cancer Maternal Grandmother Grandma Aneta Colon Social History Tobacco Use Smoking status: Never Smokeless tobacco: Never Vaping Use Vaping status: Never Used Substance Use Topics Alcohol use: Never Drug use: Never Immunization History Administered Date(s) Administered MODERNA COVID-19 (12+) MRNA, LNP-S, PF, 100 MCG/ 0.5 ML DOSE 05/29/2020, 06/26/2020 MODERNA COVID-19 (M[employer] BOOSTER), MRNA, LNP-S, PF, 50 MCG/ 0.25 ML DOSE 04/23/2021 Shingrix 05/22/2024 Td 07/10/2003 Tdap (Adacel) 04/05/2021 Current Outpatient Medications Medication Sig Dispense Refill albuterol sulfate HFA 108 (90 Base) MCG/ACT inhaler INHALE 2 PUFFS BY MOUTH 4 TIMES DAILY NEEDEDFOR WHEEZING FOR SHORTNESS OF BREATH Calcium Carbonate-Vit D-Min (CALTRATE 600+D PLUS MINERALS) 600-800 MG-UNIT Chew Tab Chew 2 tablets by mouth 2 (two) times a day. ketoconazole (NIZORAL) 2 % cream Apply topically daily. 60 g 0 omeprazole EC (PRILOSEC OTC) 20 MG tablet Take 1 tablet (20 mg total) by mouth daily. venlafaxine XR (EFFEXOR XR) 37.5 MG 24 hr capsule Take 1 capsule daily for one month, then take 1 capsule every other day for one month, then stop 30 capsule 1 No current facility-administered medications for this visit. Review of patient's allergies indicates: Allergen Reactions Pcn [Penicillins] Rash Zithromax [Azithromycin] Diarrhea Objective: Filed Vitals: 05/22/24 1415 BP: 122/66 Pulse: 89 Resp: 16 Temp: 99.3 ??F (37.4 ??C) TempSrc: Temporal SpO2: 97% Weight: 83.2 kg (183 lb 6.4 oz) Height: 1.626 m (5' 4 ) Physical Exam Vitals and nursing note reviewed. HENT: Head: Normocephalic and atraumatic. Right Ear: Tympanic membrane, ear canal and external ear normal. Left Ear: Tympanic membrane, ear canal and external ear normal. Mouth/Throat: Pharynx: No oropharyngeal exudate. Eyes: General: No scleral icterus. Conjunctiva/sclera: Conjunctivae normal. Cardiovascular: Rate and Rhythm: Normal rate and regular rhythm. Heart sounds: Normal heart sounds. No murmur heard. No friction rub. No gallop. Pulmonary: Effort: Pulmonary effort is normal. No respiratory distress. Breath sounds: Normal breath sounds. No wheezing or rales. Abdominal: Palpations: Abdomen is soft. Tenderness: There is no abdominal tenderness. Musculoskeletal: Cervical back: Neck supple. Lymphadenopathy: Cervical: No cervical adenopathy. Skin: General: Skin is warm and dry. Neurological: General: No focal deficit present. Mental Status: She is alert. Psychiatric: Mood and Affect: Mood and affect normal. Assessment & Plan: Ann was seen today for annual. Diagnoses and all orders for this visit: Encounter for preventative adult health care examination Vasomotor symptoms due to menopause - venlafaxine XR (EFFEXOR XR) 37.5 MG 24 hr capsule; Take 1 capsule daily for one month, then take 1 capsule every other day for one month, then stop Need for shingles vaccine - [47940] Shingrix Non Medicare Only, recombinant, IM ([facility]inic) Elevated hemoglobin A1c - HEMOGLOBIN, GLYCOSYLATED; Future Encounter for vitamin deficiency screening - VITAMIN D 25 OH; Future Screening for endocrine, metabolic and immunity disorder - CBC W/DIFF AUTOMATED; Future - COMPREHENSIVE METABOLIC PANEL; Future - TSH W/REFLEX; Future - LIPID PANEL; Future - HEMOGLOBIN, GLYCOSYLATED; Future - VITAMIN D 25 OH; Future Screening for lipid disorders - CBC W/DIFF AUTOMATED; Future - COMPREHENSIVE METABOLIC PANEL; Future - TSH W/REFLEX; Future - LIPID PANEL; Future - HEMOGLOBIN, GLYCOSYLATED; Future - VITAMIN D 25 OH; Future BMI 31.0-31.9,adult Discussion/Summary: Portions of exam were done for both preventive and acute/chronic management. For preventive management, expected and preventive management discussed, including diet recommendations, exercise guidelines, screening tests, screening labs, and immunization schedule. Will order screening labs as per above. Will administer Shingrix today. Patient will defer other vaccines today. Continue follow-up with our STAFF DEVELOPMENT COORDINATOR RN's for gynecology care and obtain mammogram as scheduled. For chronic care, will lower venlafaxine as per above. If results of above testing are within acceptable limits, will have patient follow-up in 1 year or sooner if needed. Patient verbalized understanding. Jaden Nguyen DO documented in this encounter Plan of Treatment Upcoming Encounters Date Type Department Care Team (Late st Contact Info) Description 09/24/2024 2:20 PM CDT Allied Health/Nurse Visit [address] [phone] Jaden Nguyen DO [address] [place] [address] 04/17/2025 2:00 PM DISTRIBUTOR SALES MANAGER Office Visit [facility] Internal [facility] [address] [place] [phone] Twila Edwards APNP [address] [place] [address] 05/26/2025 3:00 PM CDT Office Visit [facility] [address] [place] [phone] Jaden Nguyen DO [address] [place] [address] Scheduled Orders Name Type Priority Associated Diagnoses Orde r Schedule CBC W/DIFF AUTOMATED Lab Routine Screening for endocrine, metabolic and immunity disorder Screening for lipid disorders Expected: 05/22/2024, Expires: 05/22/2025 COMPREHENSIVE METABOLIC PANEL Lab Routine Screening for endocrine, metabolic and immunity disorder Screening for lipid disorders Expected: 05/22/2024, Expires: 05/22/2025 TSH W/REFLEX Lab Routine Screening for endocrine, metabolic and immunity disorder Screening for lipid disorders Expected: 05/22/2024, Expires: 05/22/2025 LIPID PANEL Lab Routine Screening for endocrine, metabolic and immunity disorder Screening for lipid disorders Expected: 05/22/2024, Expires: 05/22/2025 HEMOGLOBIN, GLYCOSYLATED Lab Routine Elevated hemoglobin A1c Screening for endocrine, metabolic and immunity disorder Screening for lipid disorders Expected: 05/22/2024, Expires: 05/22/2025 VITAMIN D 25 OH Lab Routine Encounter for vitamin deficiency screening Screening for endocrine, metabolic and immunity disorder Screening for lipid disorders Expected: 05/22/2024, Expires: 05/22/2025 documented as of this encounter Visit Diagnoses Diagnosis Encounter for preventative adult health care examination- Primary Vasomotor symptoms due to menopause Need for shingles vaccine Need for prophylactic vaccination and inoculation against other viral diseases Elevated hemoglobin A1c Other abnormal blood chemistry Encounter for vitamin deficiency screening Screening for other and unspecified endocrine, nutritional, metabolic, and immunity disorders Screening for endocrine, metabolic and immunity disorder Screening for lipid disorders BMI 31.0-31.9,adult Body Mass Index 31.0-31.9, adult documented in this encounter Additional Health Concerns Assessment Noted Time PHQ-9 Depression Total Score: 14 025 1:39 PM DISTRIBUTOR SALES MANAGER documented as of this encounter Care Teams Director Of Securities And Real Estate Relationship Specialty Start Date End Date Jaden Nguyen DO [address] [place] [id number] PCP - General FAMILY PRACTICE 04/06/21 documented as of this encounter
== END 2024-05-23 14:49 | disposition home or self-care (01) ==
LOC: ANHIMG 14:50
PROVIDERS: PCP Student in an Organized Health Care Education/Training Program; Visit Provider Registered Nurse
DX: Z12.31 Encounter for screening mammogram for malignant neoplasm of breast (principal)
CPT/HCPCS: 77063; 77067